=== PATIENT | female | born 1970 | race Caucasian/White ===

== ENCOUNTER 2024-07-15 20:40 | Emergency (ER) | payer SELFPAY ==
[~2024-07-15] VITALS: Ht 160 cm; Wt 53.5 kg
[2024-07-15] MEDS ORDERED: HYDHCL25 PO (23:13)
[2024-07-15] MEDS ORDERED: HyDROXyzine HCl 25 MG Tab PO ONE (23:15)
== END 2024-07-15 23:27 | disposition home or self-care (01) ==
LOC: ER 20:40
DX: G47.00 Insomnia, unspecified (principal); F31.9 Bipolar disorder, unspecified; Z88.8 Allergy status to other drugs, medicaments and biological substances; Z88.6 Allergy status to analgesic agent; Z79.899 Other long term (current) drug therapy
CPT/HCPCS: 99283; A9270